=== PATIENT | male | born 1960 | race Caucasian/White ===

== ENCOUNTER 2019-07-01 06:59 | Day surgery (SDC) | payer BC ==
[~2019-07-01] VITALS: Ht 188 cm; Wt 96.2 kg
[~2019-07-01 06:59] MED LIST: NO HOME MEDS
[2019-07-01 07:54] VITALS: Ht 188 cm; Wt 96.2 kg
[2019-07-01 08:17] VITALS: BP 117/73; PULSE 61; RESP 18
--- NOTE | 2019-07-01 08:49 | PREAC ---
Date/Time of Note Date/Time of Note DATE: 07/01/19 TIME: 08:47 Anesthesia Eval and Record Evaluation Time Pre-Procedure Interview DATE: 07/01/19 TIME: 08:47 Age 58 Sex male NPO: 8 hrs Preoperative diagnosis Abdominal pain and Screening Planned procedure EGD & Colonoscopy Past Medical History Past Medical History: Includes Hepatic: Other (Peptic Ulcer) Surgery & Anesthesia Issues No known issue Meds Anticoagulation: No Beta Renée within 24 hr: No Reason Beta Renée not given: Pt. not on B-Renée Reported Medications [No Home Meds] No Conflict Check 07/01/19 Meds reviewed: Yes Allergies Coded Allergies: No Known Allergy (Unverified , 07/01/19) Allergies Reviewed: Yes Labs/Studies Labs Reviewed: Reviewed by anesthesiologist test: N/A Studies: ECG (n/a), CXR (n/a) Pre-procedure Exam Last vitals Vital Signs Date Temp Pulse Resp B/P (MAP) Pulse Ox O2 O2 Flow FiO2 Time Delivery Rate 07/01/19 98.1 61 18 117/73 94 Room Air 08:17 (88) Airway: Adequate mouth opening, Adequate thyromental dist Mallampati: Mallampati II Teeth: Normal Lung: Normal Heart: Normal ASA Physical Status ASA physical status: 2 Emergency: None Planned Anesthetic General/MAC: MAC Planned Pain Management Parenteral pain med Pre-operative Attestations Prior to commencing anesthesia and surgery, the patient was re-evaluated, there was verification of: *The patient's identity *The results of appropriate recent lab work and preoperative vital signs *The above evaluation not changing prior to induction *Anesthetic plan, risk benefits, alternative and complications discussed with patient/family; questions answered; patient/family understands, accepts and wishes to proceed. MARIA T GROVE MD Jul 01, 2019 08:49
[2019-07-01] MEDS ORDERED: PROPOFOL 40 ML ONE (08:52)
[2019-07-01] MEDS ORDERED: PROPOFOL 20 ML ONE (09:29)
--- NOTE | 2019-07-01 09:33 | PAC ---
Date/Time of Note Date/Time of Note DATE: 07/01/19 TIME: 09:32 Post-Anesthesia Notes Post-Anesthesia Note Last documented vital signs Vital Signs Date Temp Pulse Resp B/P (MAP) Pulse Ox O2 O2 Flow FiO2 Time Delivery Rate 07/01/19 98.1 61 18 117/73 94 Room Air 09:27 (88) Activity: WNL Respiratory function: WNL Cardiovascular function: WNL Mental status: Baseline Pain reasonably controlled: Yes Hydration appropriate: Yes Nausea/Vomiting absent: Yes MARIA T GROVE MD Jul 01, 2019 09:32
[2019-07-01 10:00] VITALS: BP 113/63; RESP 16
== END 2019-07-01 15:07 | disposition home or self-care (01) ==
LOC: GIL 06:59
PROVIDERS: ATTEND Internal Medicine Gastroenterology
DX: Z12.11 Encounter for screening for malignant neoplasm of colon (principal); D12.5 Benign neoplasm of sigmoid colon; K62.1 Rectal polyp; K29.70 Gastritis, unspecified, without bleeding
CPT/HCPCS: 88305